=== PATIENT | male | born 1960 | race Caucasian/White ===

== ENCOUNTER 2016-10-20 09:04 | Day surgery (SDC) | payer OTHER ==
[~2016-10-20] VITALS: Ht 182.9 cm; Wt 86.0 kg
[~2016-10-20 09:04] MED LIST: 0.9% Sodium Chloride 1,000 ML IV PRN; ASPI-973 PO; LOVA20TA PO; OMEP20CA11 PO; Sodium Chloride LOK Flush 10 mL Syringe IV PRN; fentaNYL-PF 50 mCg/mL 2 mL Inj IVPUSH PRN
[2016-10-20 09:24] VITALS: BP 146/83; PULSE 84; RESP 20; O2SAT 92
[2016-10-20] MEDS ORDERED: PARO20TA5 PO (09:25)
--- NOTE | 2016-10-20 10:16 | PCM.ENDEGD ---
EGD Date of Service: Oct 20, 2016 Physician Evelio Barajas MD Indication for Procedure Reflux and Cazares's screening Post Procedure Dx & Findings: Irregular Z line fundic polyp 1 cm nodule in the small bowel. Procedure Esophagogastroduodenoscopy PROCEDURE IN DETAIL: After proper sedation, Olympus video endoscope was inserted into patient's mouth and esophagus was successfully intubated. Scope introduced esophagus. Esophagus showed normal shiny whitish mucosa consistent with squamous cell component. Z line was not intact at 40 cm from the incisors. There was a 1-2 cm spot of salmon-colored mucosa. Four-quadrant biopsies obtained for Cazares' s. No ulcers or mass erosion noted. No nodule noted. Scope further advanced to the stomach. Stomach showed normal shiny mucosa with normal appearing rugae folds without any ulcer mass erosion. Cardia fundus body antrum pylorus were all visualized. Retroflexion was done. Several fundic polyps 2-10 mm were noted . These were all distributed in the proximal body cardia and fundus. Sampling biopsy was obtained especially the largest ones. Stomach was easily inflated and deflatable using air. Scope further events to the distal duodenum. Duodenum revealed normal villous structures with normal appearing folds without any mass ulcer erosion. However in the distal small bowel, there was a 1 cm flat nodule. It looked like scarring however I was not sure whether this is a flat polyp either. Biopsies obtained. The angle was difficult. 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 Patient monitoring Continuous pulse oximetry, cardiac monitoring, blood pressure monitoring, IV access, and oxygen at 2L per nasal cannula. Periprocedural Fentanyl: Fentanyl 100mcg Incrementally Midazolam: Midazolam 5mg Incrementally Complications There were no periprocedural complications identified. Post Procedure Plan Post Procedure Recommendations 1. Restrict activities today. 2. Resume normal activities in the morning. 3. Resume medications. 4. GERD behavioral modification: - Avoid fatty, acidic, spicy, large meals - Do not lie down after meals - Do not eat or drink anything for at least 2 1/2 hours before going to bed at night - Discontinue tobacco and alcohol - Decrease or avoid caffeine - Avoid chocolate and mints - Decrease weight - Avoid aspirin and non steroidal anti-inflammatory agents (NSAID) such as Aleve, Advil, Mobic, Naproxen, Ibuprofen, etc 5. Add proton pump inhibitor. Take 30 minutes before 1st meal of the day. 6. Patient informed of normal post procedure side effects as bloating, drowsiness, blood streaking in the stool 7. If gastric biopsy reveal H.pylori, continue with appropriate treatment 8. If small bowel biopsy reveals celiac, continue with appropriate treatment 9. Please don't hesitate to call me with any questions Evelio Barajas MD Oct 20, 2016 10:16
--- NOTE | 2016-10-20 10:37 | PCM.ENDCOL ---
Colonoscopy Date of Service: Oct 20, 2016 Physician Evelio Barajas MD Pre Procedure Diagnosis: Screening Post Procedure Dx & Findings: Polyp hemorrhoids diverticuli Procedure Colonoscopy PROCEDURE IN DETAIL: Prep adequate Withdrawal time 11 minutes After unremarkable rectal examination the Olympus video colonoscope was inserted patient's anal canal and was advanced to cecum. Landmarks were identified including the ileocecal valve and appendiceal orifice. Scope was withdrawn systematically. Visualized colonic mucosa showed healthy shiny mucosa with normal healthy-appearing vasculature. In the cecum, there was a 1 mm polyp which was removed completely using cold forceps. In the sigmoid colon there was a 1 mm polyp which was removed completely using cold forceps. Sigmoid colon there. Small and large diverticuli. In the rectum retroflexion was done which showed hemorrhoids. Anal canal was inspected carefully on the way out and hemorrhoids noted. Impression Polyps 2 status post complete removal Diverticular diet Hemorrhoids Recommendation Repeat colonoscopy 5 years Diverticular diet Presedation Assessment Risks and Benefits Informed consent was obtained from the patient after all risks and benefits including but not limited to drug reaction, infection, pain, bleeding, perforation, as well as alternatives were discussed. Patient monitoring Continuous pulse oximetry, cardiac monitoring, blood pressure monitoring, IV access, and oxygen at 2L per nasal cannula. Complications There were no periprocedural complications identified. Post Procedure Plan Post Procedure Recommendations 1. Restrict activities today. 2. Resume normal activities in the morning. 3. Resume medications. 4. Patient informed of normal post procedure side effects as bloating, drowsiness, blood streaking in the stool. 5. average risk CRCS. If colon polyps come back as: -Hyperplastic- can repeat colonoscopy in 10 years -Tubular adenoma- repeat colonoscopy in 5 years -Tubulovillous/villous adenoma- repeat colonoscopy in 3 years -If any dysplasia- return to clinic as soon as possible 6. Please don't hesitate to call me with any questions. Evelio Barajas MD Oct 20, 2016 10:37
[2016-10-20 10:49] VITALS: BP 129/77; PULSE 68; RESP 14; O2SAT 95
[2016-10-20 10:51] VITALS: BP 130/93; PULSE 73; RESP 14; O2SAT 95
--- NOTE | 2016-10-21 10:46 | PATH ---
SURGICAL PATHOLOGY Attending Physician:Evelio Barajas M.D. CASE STATUS: Signed Out PATIENT NAME: VERONIQUE PADRON PID: [id number] : 1960 DATE COLLECTED:10/20/2016 20:25 SPECIMEN: 1: Stomach, Polyp, Biopsy 2: Duodenum, Biopsy 3: Esophagus, Biopsy 4: Colon, Biopsy 5: Colon, Biopsy CLINICAL HISTORY: 1). FUNDAL POLYP 2). DUODENUM 3). ESOPHAGUS 4). CECAL POLYP 5). SIGMOID COLON POLYP FINAL DIAGNOSIS: 1. Specimen Designated Fundal Polyp: Benign fundic gland polyp, negative for atypia. Negative for evidence of Helicobacter. Negative for intestinal metaplasia. Negative for dysplasia and malignancy. 2. Duodenum Biopsy: Small tubular adenoma. Negative for evidence of celiac disease. Negative for malignancy. 3. Esophagus Biopsy: Squamous mucosa and gastric cardia-type mucosa, negative for specialized metaplasia of Cazares's type esophagus. Negative for dysplasia and malignancy. Eosinophils are not increased. 4. Cecal Polyp: Tubular adenoma. 5. Sigmoid Colon Polyp: Tubular adenoma. ICD10: D12.0 NOTE: Part [address] Abe Doty and Erica Gaffney, both of whom agree with the diagnosis. GROSS DESCRIPTION: The specimen is received in five formalin filled containers labeled with the patient's name. 1). The specimen is sublabeled "fundal polyp" and consists of 2 portions of tissue which aggregate to 0.3 x 0.3 x 0.2 CM. The specimen is entirely submitted in cassette 1A. 2). The specimen is sublabeled "duodenum" and consists of 2 portions of tissue which aggregate to 0.3 x 0.2 x 0.2 CM. The specimen is entirely submitted in cassette 2A. 3). The specimen is sublabeled "esophagus" and consists of 5 portions of tissue which aggregate to 0.3 x 0.3 x 0.2 CM. The specimen is entirely submitted in cassette 3A. 4). The specimen is sublabeled "cecal polyp" and consists of a 0.3 x 0.3 x 0.3 CM portion of tissue which is entirely submitted in cassette 4A. 5). The specimen is sublabeled "sigmoid colon polyp" and consists of a 0.2 x 0.2 x 0.2 CM portion of tissue which is entirely submitted in cassette 5A. 10/20/2016 [facility] ICD-9 CODES: CPT CODES: 1: 69280 2: 37388 3: 19784 4: 00956 5: 64332 Electronically Signed Out Joshua Young MD [facility] [address], [place] [address] Technical component performed at [facility], [address], [place], [address]
== END 2016-10-20 23:59 | disposition home or self-care (01) ==
LOC: END 09:04
PROVIDERS: ATTEND Internal Medicine
DX: Z12.11 Encounter for screening for malignant neoplasm of colon (principal); D12.0 Benign neoplasm of cecum; D12.5 Benign neoplasm of sigmoid colon; K57.30 Diverticulosis of large intestine without perforation or abscess without bleeding; K64.8 Other hemorrhoids; D13.2 Benign neoplasm of duodenum; K21.9 Gastro-esophageal reflux disease without esophagitis; K58.9 Irritable bowel syndrome, unspecified; Z79.82 Long term (current) use of aspirin